=== PATIENT | female | born 1990 | race African-American/Black ===

== ENCOUNTER 2018-12-07 21:45 | Emergency (ER) | payer OTHER, SELFPAY ==
[2018-12-07] MEDS ORDERED: diphenhydrAMINE 50 MG/ML VIAL ONE (23:09)
[2018-12-07] MEDS ORDERED: Metoclopramide HCl 10 MG/2 ML VIAL ONE (23:09)
[2018-12-07 23:44] LABS: Band 1 % (5-11); Hemoglobin 12.9 g/dL (12.0-16.0); Lymphocytes 60 % (21-51); MDiff Complete? YES; Mean Corpuscular HGB CONC 32.2 g/dL (32.0-36.0); Mean Corpuscular Hemoglobin 28.5 pg (27.0-31.0); Mean Corpuscular Volume 88.6 fL (78.0-98.0); Mean Platelet Volume 6.7 fL (7.4-10.4); Monocytes 6 % (0-10); Neutrophil 33 % (42-75); Platelet Count 281 thou/uL (130-400); Red Blood Cell (RBC) Count 4.55 mill/uL (4.20-5.40); White Blood Cell (WBC) Count 5.6 thou/uL (4.8-10.8)
== END 2018-12-08 00:51 | disposition home or self-care (01) ==
LOC: ERS 21:45
DX: R51 Headache (principal)
CPT/HCPCS: 36415; 84443; 85025; 96365; 96375; J1200; J2765